=== PATIENT | female | born 1965 | race African-American/Black ===

== ENCOUNTER 2018-11-04 08:33 | Emergency (ER) | payer OTHER ==
--- NOTE | 2018-11-04 09:15 | ER Document Report ---
ED General - General Chief Complaint: Abscess Stated Complaint: ABSCESS Time Seen by Provider: 11/04/18 09:04 Mode of Arrival: Ambulatory Information source: Patient Notes: This is a 53-year-old female with no medical problems, history significant for cigarette smoking (now only 2 cigarettes a day) who presents to the emergency room with a painful lump in the right breast. Patient denies any fever, chills, nausea, vomiting or recent illnesses. Patient denies any night sweats or weight loss. She is not followed by her primary care doctor. She is on no medicines currently. She has no allergies. TRAVEL OUTSIDE OF THE [place] IN LAST 30 DAYS: No - HPI Onset: Last week Onset/Duration: Gradual Quality of pain: Dull Severity: Mild Pain Level: 1 Associated symptoms: denies: Chest pain, Fever, Shortness of breath Exacerbated by: Denies Relieved by: Denies Similar symptoms previously: No Recently seen / treated by doctor: No - Related Data Allergies/Adverse Reactions: No Known Allergies Allergy (Verified 11/04/18 08:36) Past Medical History - General Information source: Patient - Social History Smoking Status: Current Every Day Smoker Cigarette use (# per day): Yes - Few cigarettes a day down from 2 packs a day Chew tobacco use (# tins/day): No Frequency of alcohol use: None Drug Abuse: None Lives with: Spouse/Significant other Family History: Reviewed & Not Pertinent Patient has suicidal ideation: No Patient has homicidal ideation: No - Medical History Medical History: Negative - Past Medical History Cardiac Medical History: Reports: Hx Hypertension Renal/ Medical History: Reports: None GI Medical History: Reports: None Musculoskeletal Medical History: Reports None Surgical Hx: Negative - Immunizations Immunizations up to date: Yes Hx Diphtheria, Pertussis, Tetanus Vaccination: Yes Review of Systems - Review of Systems Constitutional: denies: Chills, Fever EENT: No symptoms reported Cardiovascular: No symptoms reported Respiratory: No symptoms reported Gastrointestinal: No symptoms reported Genitourinary: No symptoms reported Female Genitourinary: No symptoms reported Musculoskeletal: No symptoms reported Skin: See HPI Hematologic/Lymphatic: No symptoms reported Neurological/Psychological: No symptoms reported Physical Exam - Vital signs Vitals: Temp Pulse Resp BP Pulse Ox 98.0 F 85 16 174/88 H 100 11/04/18 08:49 11/04/18 08:49 11/04/18 08:49 11/04/18 08:49 11/04/18 08:49 Notes: Physical exam: GENERAL: Pleasant 53-year-old female, alert and oriented x3, no acute distress. She is hypertensive with a blood pressure of 174/88. Her pulse is 85. O2 sat 100%. Physical exam performed with female nurse present. HEAD: Atraumatic, normocephalic. EYES: Pupils equal round and reactive to light, extraocular movements intact, sclera anicteric, conjunctiva are normal. ENT: TMs normal, nares patent, oropharynx clear without exudates. Moist mucous membranes. NECK: Normal range of motion, supple without obvious mass or JVD. Breast: Right breast: Patient does have palpable mass in the left upper quadrant of the right breast. There is no overlying skin changes, no erythema, no fluctuance. There is no discharge from the nipple. Right axilla: No obvious masses. Left breast: No palpable masses, no skin changes. Left axilla: No masses LUNGS: Scant wheezing bilaterally. HEART: Regular rate and rhythm without murmurs, rubs or gallops. ABDOMEN: Soft, normoactive bowel sounds. No tenderness to palpation. No guarding, no rebound. No masses appreciated. EXTREMITIES: Normal range of motion, no pitting or edema. No clubbing or cyanosis. NEUROLOGICAL: Patient is speaking normally, moving all extremities, no problems with gait . PSYCH: Normal mood, normal affect. SKIN: Warm, Dry, normal turgor, no rashes or lesions noted. Course - Re-evaluation Re-evalutation: 11/04/18 19:59 Note: The patient does not have an abscess. The concern here is that she is got a breast mass which is concerning for breast cancer. Her labs and test x-ray looked good. I did speak to ultrasound and they said they do not do breast ultrasounds (when looking for breast masses and cancer) by policy because those are done as an outpatient patient with a mammogram. Unfortunately does not have insurance. I did speak to Dr. Maravilla who is on-call for oncology and she said that the office does not have any resources for setting up people before the diagnosis of breast cancer is made. She recommended contacting the social services counselor for [facility]. Social work here at [facility] was contacted and they did evaluate the patient. I was informed that there is no resources available until the patient has a diagnosis. Dr. Maravilla had also recommended having the patient follow-up with the [facility] where they could set up the care she needed at a reduced cost and once a diagnosis was confirmed, they could work on getting insurance that would be covered in the oncology office. I had a long discussion with the patient regarding the issues above. I have i nformed her boyfriend who is with her at the bedside. I told them that my concern is that she has breast cancer but there is no definitive answer until the workup above could be completed. They appear to understand my conversation and the boyfriend actually goes to [facility] and said he would go tomorrow to set up an appointment for the patient. I told them to bring a copy of the discharge paperwork to the [facility] to help explain today's clinical encounter and hopefully the plan of getting an outpatient mammogram and ultrasound. - Vital Signs Vital signs: Temp Pulse Resp BP Pulse Ox 98.6 F 82 14 169/86 H 100 11/04/18 14:16 11/04/18 14:16 11/04/18 14:16 11/04/18 14:16 11/04/18 14:16 - Laboratory Result Diagrams: 11/04/18 09:32 11/04/18 09:32 Laboratory results interpreted by me: 11/04/18 11/04/18 09:32 09:32 RDW 14.3 H BUN 22 H Est GFR (Non-Af Amer) 52 L Glucose 119 H - Diagnostic Test Radiology reviewed: Image reviewed, Reports reviewed - X-ray shows no infiltrates Discharge - Discharge Clinical Impression: Breast mass Condition: Stable Disposition: HOME, SELF-CARE Additional Instructions: As we discussed, you do have a right breast mass. This could be cancer (we are just not sure yet because you do need further workup including a mammogram) It is very important that you get an outpatient mammogram with ultrasound. Want you to follow-up with the [facility]: [address] [place] [address], [facility] [phone] When you go to the [facility]: Tell them that you were diagnosed with a breast mass the emergency room and they recommended outpatient mammogram with ultrasound.
[2018-11-04 09:49] LABS: ABSOLUTE EOSINOPHILS # (AUTO) 0.2 10^3/uL (0.0-0.6); ABSOLUTE MONOCYTES (AUTO) 0.4 10^3/uL (0.1-1.4); ABSOLUTE NEUT (AUTO) 2.8 10^3/uL (1.7-8.2); BASOPHILS % (AUTO) 0.5 % (0-2); EOSINOPHILS % (AUTO) 3.4 % (0-6); HEMATOCRIT 40.4 % (36.0-47.0); HEMOGLOBIN 13.8 g/dL (12.0-15.5); LYMPHOCYTES % (AUTO) 37.4 % (13-45); MEAN CORPUSCULAR HEMOGLOBIN 31.3 pg (27.0-33.4); MEAN CORPUSCULAR HGB CONC 34.2 g/dL (32.0-36.0); MEAN CORPUSCULAR VOLUME 92 fl (80-97); PLATELET COUNT 230 10^3/uL (150-450); RED BLOOD COUNT 4.41 10^6/uL (3.72-5.28); RED CELL DISTRIBUTION WIDTH 14.3 % (11.5-14.0); SEGMENTED NEUTROPHILS % (AUTO) 51.7 % (42-78); TOTAL CELLS COUNTED % (AUTO) 100 %; WHITE BLOOD COUNT 5.4 10^3/uL (4.0-10.5)
--- NOTE | 2018-11-04 10:02 | RADIOLOGY REPORT (SQ) ---
EXAM DESCRIPTION: CHEST 2 VIEWS COMPLETED DATE/TIME: 11/04/2018 9:46 am REASON FOR STUDY: Wheezing COMPARISON: None. EXAM PARAMETERS: NUMBER OF VIEWS: two views TECHNIQUE: Digital Frontal and Lateral radiographic views of the chest acquired. RADIATION DOSE: NA LIMITATIONS: none FINDINGS: LUNGS AND PLEURA: No opacities, masses or pneumothorax. No pleural effusion. MEDIASTINUM AND HILAR STRUCTURES: No masses or contour abnormalities. HEART AND VASCULAR STRUCTURES: Heart normal size. No evidence for failure. BONES: No acute findings. HARDWARE: None in the chest. OTHER: No other significant finding. IMPRESSION: 1. NO ACUTE RADIOGRAPHIC FINDING IN THE CHEST. TECHNICAL DOCUMENTATION: JOB ID: [id number] [employer]- All Rights Reserved Reading location - IP/workstation name: [email or web address]
[2018-11-04 10:17] LABS: ALANINE AMINOTRANSFERASE 9 U/L (9-52); ALBUMIN 4.7 g/dL (3.5-5.0); ALKALINE PHOSPHATASE 81 U/L (38-126); ANION GAP 11 (5-19); ASPARTATE AMINO TRANSFERASE 18 U/L (14-36); BILIRUBIN,DIRECT 0.3 mg/dL (0.0-0.4); BILIRUBIN,TOTAL 0.9 mg/dL (0.2-1.3); BLOOD UREA NITROGEN 22 mg/dL (7-20); CALCIUM 9.8 mg/dL (8.4-10.2); CARBON DIOXIDE 29 mmol/L (22-30); CHLORIDE 103 mmol/L (98-107); GLUCOSE 119 mg/dL (75-110); POTASSIUM 3.6 mmol/L (3.6-5.0); TOTAL PROTEIN 7.9 g/dL (6.3-8.2)
[2018-11-04 14:17] VITALS: BP 169/86
== END 2018-11-04 14:17 | disposition home or self-care (01) ==
LOC: ER 08:33
DX: N63.10 Unspecified lump in the right breast, unspecified quadrant (principal); F17.210 Nicotine dependence, cigarettes, uncomplicated; I10 Essential (primary) hypertension
CPT/HCPCS: 36415; 71046; 80053; 85025; 99283

== ENCOUNTER → 2018-12-06 | Outpatient (CLI) | payer OTHER ==
--- NOTE | 2018-12-06 10:24 | RADIOLOGY REPORT (SQ) ---
EXAM DESCRIPTION: CT CHEST WITH COMPLETED DATE/TIME: 12/06/2018 10:07 am REASON FOR STUDY: MALIG NEOPLM OF UPPER-OUTER QUADRANT OF RIGHT FEMALE BREAST C50.411 MALIG NEOPLM OF UPPER-OUTER QUADRANT OF RIGHT FEMALE COMPARISON: None. TECHNIQUE: CT scan of the chest performed using helical scanning technique with dynamic intravenous contrast injection. Images reviewed with lung, soft tissue and bone windows. Reconstructed coronal and sagittal MPR and MIP images reviewed. All images stored on PACS. All CT scanners at this facility use dose modulation, iterative reconstruction, and/or weight based d osing when appropriate to reduce radiation dose to as low as reasonably achievable (ALARA). [facility]: Dose Right [facility]: CareDose [facility]: Dose Right [facility]: Teradose 4D [facility]: [employer] CONTRAST TYPE AND DOSE: 97 mL Isovue 370- low osmolar. RENAL FUNCTION: Creatinine 1.2 RADIATION DOSE: . LIMITATIONS: None. FINDINGS: LUNGS AND PLEURA: No opacities, nodules, masses. No pneumothorax. No effusions. HILAR AND MEDIASTINAL STRUCTURES: No identified masses or abnormal nodes. HEART AND VASCULAR STRUCTURES: No aneurysm or dissection. No central pulmonary emboli. No pericardi al effusion. HARDWARE: None in the chest. UPPER ABDOMEN: No significant findings. Limited exam. THYROID AND OTHER SOFT TISSUES: No masses. No adenopathy. BONES: No significant finding. OTHER: There are 3 separate soft tissue masses in the right breast. These are measured 3.3 cm, 1.8 c m and 1.3 cm. The smallest lesion is in the tail the right breast. IMPRESSION: 1. 3 right breast soft tissue masses as described. 2. No evidence of metastatic disease. TECHNICAL DOCUMENTATION: JOB ID: [id number] Quality ID # [id number]: Final reports with documentation of one or more dose reduction techniques (e.g., Au tomated exposure control, adjustment of the mA and/or kV according to patient size, use of iterative reconstruction technique) 2010 [employer]- All Rights Reserved Reading location - IP/workstation name: [email or web address]
--- NOTE | 2018-12-06 10:26 | RADIOLOGY REPORT (SQ) ---
EXAM DESCRIPTION: CT ABD/PELVIS WITH IV ONLY COMPLETED DATE/TIME: 12/06/2018 10:07 am REASON FOR STUDY: MALIG NEOPLM OF UPPER-OUTER QUADRANT OF RIGHT FEMALE BREAST C50.411 MALIG NEOPLM OF UPPER-OUTER QUADRANT OF RIGHT FEMALE COMPARISON: None. TECHNIQUE: CT scan of the abdomen and pelvis performed using helical scanning technique with dynamic intravenous contrast injection. No oral contrast. Images reviewed with lung, soft tissue, and bone windows. Reconstructed coronal and sagittal MPR images reviewed. Delayed images for evaluation of the urinary system also acquired. All images stored on PACS. All CT scanners at this facility use dose modulation, iterative reconstruction, and/or weight based d osing when appropriate to reduce radiation dose to as low as reasonably achievable (ALARA). [facility]: Dose Right [facility]: CareDose [facility]: Dose Right [facility]: Teradose 4D [facility]: [employer] CONTRAST TYPE AND DOSE: contrast/concentration: Isovue 350.00 mg/ml; Total Contrast Delivered: 97.0 ml; Total Saline Delivered: 72.0 ml RENAL FUNCTION: Creatinine 1.2 RADIATION DOSE: CT Rad equipment meets quality standard of care and radiation dose reduction techniq ues were employed. CTDIvol: 4.8 - 9.6 mGy. DLP: 1191 mGy-cm.. LIMITATIONS: None. FINDINGS: LOWER CHEST: No significant findings. No nodules or infiltrates. LIVER: Normal size. No masses. No dilated ducts. SPLEEN: Normal size. No focal lesions. Accessory splenule is noted in the left upper quadrant. PANCREAS: No masses. No significant calcifications. No adjacent inflammation or peripancreatic fluid collections. Pancreatic duct not dilated. GALLBLADDER: No identified stones by CT criteria. No inflammatory changes to suggest cholecystitis. ADRENAL GLANDS: No significant masses or asymmetry. RIGHT KIDNEY AND URETER: No solid masses. No significant calcifications. No hydronephrosis or hyd roureter. LEFT KIDNEY AND URETER: No solid masses. No significant calcifications. No hydronephrosis or hydr oureter. AORTA AND VESSELS: No aneurysm. No dissection. Renal arteries, SMA, celiac without stenosis. RETROPERITONEUM: No retroperitoneal adenopathy, hemorrhage or masses. BOWEL AND PERITONEAL CAVITY: No masses or inflammatory changes. No free fluid or peritoneal masses. APPENDIX: Normal. PELVIS: No mass. No free fluid. Normal bladder. ABDOMINAL WALL: There is a small umbilical hernia containing omental fat only. BONES: No significant or acute findings. OTHER: No other significant finding. IMPRESSION: No evidence of metastatic disease in the abdomen or pelvis. TECHNICAL DOCUMENTATION: JOB ID: [id number] Quality ID # 436: Final reports with documentation of one or more dose reduction techniques (e.g., Au tomated exposure control, adjustment of the mA and/or kV according to patient size, use of iterative reconstruction technique) 2010 [employer]- All Rights Reserved Reading location - IP/workstation name: [email or web address]
== END ==
LOC: RAD 09:33
PROVIDERS: ATTEND Internal Medicine
DX: C50.411 Malignant neoplasm of upper-outer quadrant of right female breast (principal)
CPT/HCPCS: 71260; 74177; 82565

== ENCOUNTER → 2018-12-09 | Outpatient (CLI) | payer OTHER ==
--- NOTE | 2018-12-09 15:33 | RADIOLOGY REPORT (SQ) ---
EXAM DESCRIPTION: NM WHOLE BODY BONE SCAN COMPLETED DATE/TIME: 12/09/2018 2:18 pm REASON FOR STUDY: BREAST CA C50.411 MALIG NEOPLM OF UPPER-OUTER QUADRANT OF RIGHT FEMALE COMPARISON: No available imaging studies for comparison. RADIONUCLIDE AND DOSE: 21.5 millicuries Tc99m HDP. The route of agent administration: Intravenous. ADDITIONAL DRUGS AND DOSES: None. TECHNIQUE: Routine delayed images at 3 hour post radionuclide injection acquired of the bony skeleto n including anterior and posterior whole-body projections and additional focused images as needed. LIMITATIONS: None. FINDINGS: BONES: Normal visualization without areas of photopenia or increased bony uptake of radiop harmaceutical. KIDNEYS: Symmetric excretion without obstruction. OTHER: No other significant finding. IMPRESSION: NORMAL BONE SCAN. COMMENT: Quality measure 147: No available prior imaging studies for comparison TECHNICAL DOCUMENTATION: JOB ID: [id number] [employer]- All Rights Reserved Reading location - IP/workstation name: [email or web address]
== END ==
LOC: RAD 11:28
PROVIDERS: ATTEND Internal Medicine
DX: C50.411 Malignant neoplasm of upper-outer quadrant of right female breast (principal)
CPT/HCPCS: 78306; A9561

== ENCOUNTER → 2018-12-10 | Outpatient (CLI) | payer OTHER ==
--- NOTE | 2018-12-10 21:27 | XCELERA REPORT ---
[address] [address] Transthoracic Echocardiogram Report Name: KANDICE PATINO Age: 53 yrs Gender: Female : 1965 Patient Status: Outpatient Patient Location: RAD Study Date: 12/10/2018 01:01 PM Height: 62 in Weight: 180 lb BSA: 1.8 m2 Procedure: A two-dimensional transthoracic echocardiogram with color flow Doppler was performed. The study was technically limited with all images being suboptimal in quality. Reason For Study: BREAST CANCER History: BREAST CANCER /Z51.11. Ordering Physician: JERRICA STAPLETON Performed By: Aishwarya Hernandez Interpretation Summary The left ventricle is normal in size. There is normal left ventricular wall thickness. LV EF is 60% to 65% The left ventricular ejection fraction is within normal limits. Doppler measurements suggest impaired left ventricular relaxation, which is associated with grade I/IV or mild diastolic dysfunction The left ventricular wall motion is normal. There is no thrombus. The right ventricle is normal in size and function. The right atrium is normal. The left atrial size is normal. There is no evidence of mitral valve prolapse. There is no vegetation seen on the mitral valve. There is no mitral valve stenosis. There is no mitral regurgitation noted. There is no aortic valvular vegetation. There is no aortic valve stenosis There is no LVOT obstruction. There is a mild to moderate amount of aortic regurgitation There is no tricuspid stenosis. No tricuspid regurgitation. Unable to calculate RVSP due lack of TR jet. There is no pulmonic valvular stenosis. There is a trace amount of pulmonic regurgitation The aortic root is normal size. There is no pericardial effusion. MMode/2D Measurements & Calculations RVDd: 2.7 cm LVIDd: 4.8 cm FS: 35.5 % Ao root diam: 3.0 cm IVSd: 0.79 cm LVIDs: 3.1 cm EDV(Teich): LVPWd: 1.0 cm 108.6 ml Ao root area: ESV(Teich): 38.1 ml6.9 cm2 EF(Teich): 64.9 % EDV(MOD-sp4): SV(MOD-sp4): 85.6 ml 43.8 ml ESV(MOD-sp4): 41.7 ml EF(MOD-sp4): 51.2 % Doppler Measurements & Calculations MV E max noah: MV dec slope: Ao V2 max: AI max noah: 77.0 cm/sec 124.6 cm/sec 527.6 cm/sec MV A max noah: 448.7 cm/sec2 Ao max P.2 mmHgAI max P.7 cm/sec MV dec time: 111.4 mmHg MV E/A: 0.89 0.17 sec AI dec slope: 373.2 cm/sec2 AI P1/2t: 414.1 msec LV V1 max PG: PA V2 max: PI end-d noah: 3.7 mmHg 89.7 cm/sec 104.4 cm/sec LV V1 max: PA max P.2 mmHg 95.8 cm/sec Left Ventricle The left ventricle is normal in size. There is normal left ventricular wall thickness. LV EF is 60% to 65%. The left ventricular ejection fraction is within normal limits. Doppler measurements suggest impaired left ventricular relaxation, which is associated with grade I/IV or mild diastolic dysfunction. The left ventricular wall motion is normal. There is no thrombus. Right Ventricle The right ventricle is normal in size and function. Atria The right atrium is normal. The left atrial size is normal. Mitral Valve There is no evidence of mitral valve prolapse. There is no vegetation seen on the mitral valve. There is no mitral valve stenosis. There is no mitral regurgitation noted. Aortic Valve There is no aortic valvular vegetation. There is no aortic valve stenosis. There is no LVOT obstruction. There is a mild to moderate amount of aortic regurgitation. Tricuspid Valve There is no tricuspid stenosis. No tricuspid regurgitation. Unable to calculate RVSP due lack of TR jet. Pulmonic Valve There is no pulmonic valvular stenosis. There is a trace amount of pulmonic regurgitation. Great Vessels The aortic root is normal size. Effusions There is no pericardial effusion. : JERRICA STAPLETON > Verna Bullock
== END ==
LOC: RAD 12:41
PROVIDERS: ATTEND Internal Medicine
DX: C50.411 Malignant neoplasm of upper-outer quadrant of right female breast (principal); Z79.899 Other long term (current) drug therapy
CPT/HCPCS: 93306

== ENCOUNTER 2018-12-12 05:58 | Day surgery (SDC) | payer OTHER ==
[2018-12-12 06:33] LABS: HEMATOCRIT 40.2 % (36.0-47.0); HEMOGLOBIN 13.8 g/dL (12.0-15.5); MEAN CORPUSCULAR HEMOGLOBIN 31.4 pg (27.0-33.4); MEAN CORPUSCULAR HGB CONC 34.4 g/dL (32.0-36.0); MEAN CORPUSCULAR VOLUME 91 fl (80-97); PLATELET COUNT 269 10^3/uL (150-450); RED CELL DISTRIBUTION WIDTH 13.8 % (11.5-14.0)
[2018-12-12] MEDS ORDERED: CEFAZOLIN 1 GM/D5W RTU 1 GM/50 ML RTUPB IV ONE (07:57)
[2018-12-12] MEDS ORDERED: ACETAMINOPHEN 325 MG TABLET PO PRN (08:08)
[2018-12-12] MEDS ORDERED: LIDOCAINE 0.5% INJ-PF (5 MG/ML) 50 ML SDV ONE (08:26)
[2018-12-12] MEDS ORDERED: BACITRACIN INJ 50,000 UNIT VIAL ONE (08:26)
[2018-12-12] MEDS ORDERED: MIDAZOLAM 2 MG/2 ML INJ ONE ×2 (08:32→09:06)
[2018-12-12] MEDS ORDERED: FENTANYL CITRATE INJ/PF 100 MCG/2 ML AMPUL ONE (08:32)
--- NOTE | 2018-12-12 09:38 | Discharge Summary ---
Discharge Summary (SDC) - Discharge Final Diagnosis: MultiCentric, locally advanced breast carcinoma Date of Surgery: 12/12/18 Discharge Date: 12/12/18 Condition: Good Treatment or Instructions: Patient may use port; follow-up with [facility] in 1-2 weeks. May shower in 72 hours. Patient may take Tylenol Motrin as needed pain Discharge Diet: As Tolerated Discharge Activity: Activity As Tolerated Home Care Assistance: None Needed Report the Following to Your Physician Immediately: Shortness of Breath, Increase in Pain, Fever over 101 Degrees
--- NOTE | 2018-12-12 09:42 | Operative Report ---
Operative Report DATE OF SURGERY: 12/12/18 PREOPERATIVE DIAGNOSIS: Multicentric, locally advanced breast carcinoma POSTOPERATIVE DIAGNOSIS: same OPERATION: 1. Focused ultrasound of the left neck. 2. Ultrasound directed insertion of single-lumen port catheter into the left subclavian position. 3. Interpretation of intraoperative fluoroscopy SURGEON: TRU RABAGO ANESTHESIA: Moderate Sedation TISSUE REMOVED OR ALTERED: none COMPLICATIONS: none ESTIMATED BLOOD LOSS: scant INTRAOPERATIVE FINDINGS: see below PROCEDURE: The patient was taken from the ambulatory area to the main cardiac catheterization lab where she was placed supine position, arms tucked, left neck and chest wall prepped and draped in sterile fashion. Surgical plan surgical timeout were conducted. The left neck was anesthetized with 1% plain lidocaine. Using Seldinger technique, with ultrasound as a real guide, a micro needle and wire were threaded into the left internal jugular vein without difficulty. A suitable site for placement of port pocket shows in the left subclavian position. Skin was anesthetized with 1% plain lidocaine. A 3 cm incision was made in the subclavian region, and a subcutaneous pocket developed large enough to accommodate a single port was developed. The catheter was then trimmed to the appropriate length, tunneled between the 2 incisions, attached to the port with the plastic ring retaining ring. The port was tucked into the subclavian pocket. The micro wire was then switched over to a conventional 0.030 inch guidewire using the micro-introducer sheath. We then threaded the 9 [place]z dilator and sheath over the wire under fluoroscopic guidance real-time. The dilator and wire were removed, catheter fragment threaded into the strip away sheath strip away sheath removed, and the catheter left in position. Fluoroscopically the tip of the catheter was in the SVC- right atrial junction. There is no evidence of ectopy. There is no kinking of the catheter at the neck. Completion images were obtained for the record. Heparinized saline was aspirated through the Weinberg needle through the port without difficulty and the line flushed with a dilute heparinized saline solution. Hemostasis was excellent. Both neck and chest wall wounds closed with interrupted 3-0 Vicryl suture, benzoin, and Steri- Strips. Patient tolerated procedure well. Discharge instructions provided to nursing staff.
[2018-12-12 11:47] VITALS: BP 149/90
--- NOTE | 2018-12-12 12:56 | RADIOLOGY REPORT (SQ) ---
EXAM DESCRIPTION: PORTACATH INSERTION COMPLETED DATE/TIME: 12/12/2018 9:40 am REASON FOR STUDY: RT BREAST CA C50.411 MALIG NEOPLM OF UPPER-OUTER QUADRANT OF RIGHT FEMALE COMPARISON: CT chest 12/06/2018 FLUOROSCOPY TIME: Less than 5 seconds 1 digital radiographic image saved to PACS. TECHNIQUE: Intra-operative images acquired during surgical procedure to evaluate progress. NUMBER OF IMAGES: 1 digital radiographic image LIMITATIONS: None. FINDINGS: Intra procedural imaging and fluoro during placement of a left-sided permanent central shaye e. Please see the operative report IMPRESSION: IMAGE(S) OBTAINED DURING PROCEDURE. COMMENT: Quality ID [id number]: Final reports for procedures using fluoroscopy that document radiation exp osure indices, or exposure time and number of fluorographic images (if radiation exposure indices are not available) Please consult full operative report of the attending physician for description of the procedure. TECHNICAL DOCUMENTATION: JOB ID: [id number] [employer]- All Rights Reserved FLUORO TIME: Less than 5 seconds 1 digital radiographic image saved to PACS. Reading location - IP/workstation name: [email or web address]
== END 2018-12-12 10:30 | disposition home or self-care (01) ==
LOC: CCL 05:58
PROVIDERS: ATTEND Surgery
DX: C50.411 Malignant neoplasm of upper-outer quadrant of right female breast (principal); J45.909 Unspecified asthma, uncomplicated; F17.210 Nicotine dependence, cigarettes, uncomplicated; Z72.89 Other problems related to lifestyle; Z01.818 Encounter for other preprocedural examination
CPT/HCPCS: 36415; 85027; 36561; 76937; 77001; C1752; C1788; J2250; J3490 ×2; J0690; J3010; J1644

== ENCOUNTER 2018-12-17 09:02 | Outpatient (CLI) | payer MEDICAID, OTHER ==
[~2018-12-17 09:02] MED LIST: CYCLOPHOSPHAMIDE IV PRN; DEXAMETHASONE SOD PHOSPHATE 10 MG in NORMAL SALINE 50 ML IV PRN; DISPOSABLE IV PRN; DOXORUBICIN HCL IV PRN; FOSAPREPITANT DIMEGLUMINE 150 MG in NORMAL SALINE 150 ML IV PRN; NORMAL SALINE 500 ML IV PRN; NORMAL SALINE IV PRN; PALONOSETRON 0.25 MG/5 ML SDV IV PRN
[2018-12-17 09:59] VITALS: BP 171/86
== END 2018-12-17 13:55 | disposition home or self-care (01) ==
LOC: II 09:02 → 5TH 09:53 → II 13:55
PROVIDERS: ATTEND Internal Medicine
PROC: 3E04305 Introduction of Other Antineoplastic into Central Vein, Percutaneous Approach (ICD-10-PCS; principal; 2018-12-17)
PROC: 3E0433Z Introduction of Anti-inflammatory into Central Vein, Percutaneous Approach (ICD-10-PCS; 2018-12-17)
PROC: 3E043GC Introduction of Other Therapeutic Substance into Central Vein, Percutaneous Approach (ICD-10-PCS; 2018-12-17)
DX: Z51.11 Encounter for antineoplastic chemotherapy (principal); C50.411 Malignant neoplasm of upper-outer quadrant of right female breast
CPT/HCPCS: 96409; 96413; 96367; 96374; 96375; 96360; J9070; J9000; J7040; J3490; J1100; J1453; J2469; 96417

== ENCOUNTER → 2018-12-18 | Outpatient (CLI) | payer OTHER ==
[~2018-12-18] MED LIST changes: -CYCLOPHOSPHAMIDE IV PRN; -DEXAMETHASONE SOD PHOSPHATE 10 MG in NORMAL SALINE 50 ML IV PRN; -DISPOSABLE IV PRN; -DOXORUBICIN HCL IV PRN; -FOSAPREPITANT DIMEGLUMINE 150 MG in NORMAL SALINE 150 ML IV PRN; -NORMAL SALINE 500 ML IV PRN; -NORMAL SALINE IV PRN; -PALONOSETRON 0.25 MG/5 ML SDV IV PRN; +PEGFILGRASTIM INJ 6 MG/0.6 ML DISP.SYRIN SUBCUT PRN
[2018-12-18 13:32] VITALS: BP 150/88
== END ==
LOC: II 13:14
PROVIDERS: ATTEND Internal Medicine
PROC: 3E013GC Introduction of Other Therapeutic Substance into Subcutaneous Tissue, Percutaneous Approach (ICD-10-PCS; principal; 2018-12-18)
DX: Z76.89 Persons encountering health services in other specified circumstances (principal); C50.411 Malignant neoplasm of upper-outer quadrant of right female breast; D70.2 Other drug-induced agranulocytosis
CPT/HCPCS: 96372; J2505

== ENCOUNTER 2018-12-31 08:52 | Outpatient (CLI) | payer MEDICAID ==
[~2018-12-31 08:52] MED LIST changes: +CYCLOPHOSPHAMIDE IV PRN; +DEXAMETHASONE 10 MG in NS 50 ML IV PRN; +DISPOSABLE IV PRN; +DOXORUBICIN HCL IV PRN; +FOSAPREPITANT 150 MG in NS 150 ML IV PRN; +NORMAL SALINE 500 ML @ KVO IV PRN; +NORMAL SALINE IV PRN; +PALONOSETRON 0.25 MG/5 ML VIAL IV PRN; -PEGFILGRASTIM INJ 6 MG/0.6 ML DISP.SYRIN SUBCUT PRN
[2018-12-31 10:01] VITALS: BP 154/86
== END 2018-12-31 12:50 | disposition home or self-care (01) ==
LOC: II 08:52 → 5TH 08:55 → II 12:50
PROVIDERS: ATTEND Internal Medicine
PROC: 3E04305 Introduction of Other Antineoplastic into Central Vein, Percutaneous Approach (ICD-10-PCS; principal; 2018-12-31)
PROC: 3E0433Z Introduction of Anti-inflammatory into Central Vein, Percutaneous Approach (ICD-10-PCS; 2018-12-31)
PROC: 3E043GC Introduction of Other Therapeutic Substance into Central Vein, Percutaneous Approach (ICD-10-PCS; 2018-12-31)
DX: Z51.11 Encounter for antineoplastic chemotherapy (principal); C50.411 Malignant neoplasm of upper-outer quadrant of right female breast
CPT/HCPCS: 96409; 96413; 96367; 96374; 96360; J9070; J9000; J7040; J3490; J1100; J1453; J2469; 96366; 96375; 96411

== ENCOUNTER 2019-01-01 12:41 | Outpatient (CLI) | payer MEDICAID, OTHER ==
[~2019-01-01 12:41] MED LIST changes: -CYCLOPHOSPHAMIDE IV PRN; -DEXAMETHASONE 10 MG in NS 50 ML IV PRN; -DISPOSABLE IV PRN; -DOXORUBICIN HCL IV PRN; -FOSAPREPITANT 150 MG in NS 150 ML IV PRN; -NORMAL SALINE 500 ML @ KVO IV PRN; -NORMAL SALINE IV PRN; -PALONOSETRON 0.25 MG/5 ML VIAL IV PRN; +PEGFILGRASTIM INJ 6 MG/0.6 ML DISP.SYRIN SUBCUT PRN
[2019-01-01 12:57] VITALS: BP 133/75
== END 2019-01-01 13:04 | disposition home or self-care (01) ==
LOC: II 12:41 → 5TH 12:41 → II 13:04
PROVIDERS: ATTEND Internal Medicine
PROC: 3E013GC Introduction of Other Therapeutic Substance into Subcutaneous Tissue, Percutaneous Approach (ICD-10-PCS; principal; 2019-01-01)
DX: Z76.89 Persons encountering health services in other specified circumstances (principal); C50.411 Malignant neoplasm of upper-outer quadrant of right female breast; D70.2 Other drug-induced agranulocytosis
CPT/HCPCS: 96372; J2505

== ENCOUNTER 2019-01-15 12:38 | Outpatient (CLI) | payer MEDICAID, OTHER ==
[2019-01-15 12:49] VITALS: BP 125/69
== END 2019-01-15 13:08 | disposition home or self-care (01) ==
LOC: II 12:38 → 5TH 12:56 → II 13:08
PROVIDERS: ATTEND Internal Medicine
PROC: 3E013GC Introduction of Other Therapeutic Substance into Subcutaneous Tissue, Percutaneous Approach (ICD-10-PCS; principal; 2019-01-15)
DX: Z76.89 Persons encountering health services in other specified circumstances (principal); C50.411 Malignant neoplasm of upper-outer quadrant of right female breast; D70.2 Other drug-induced agranulocytosis
CPT/HCPCS: 96372; J2505

== ENCOUNTER 2019-01-28 08:44 | Outpatient (CLI) | payer MEDICAID ==
[~2019-01-28 08:44] MED LIST changes: +CYCLOPHOSPHAMIDE IV PRN; +DEXAMETHASONE 10 MG in NS 50 ML IV PRN; +DOXORUBICIN HCL 110 MG in SYRINGE, DISPOSABLE, 1 EACH IV PRN; +FOSAPREPITANT 150 MG in NS 150 ML IV PRN; +NORMAL SALINE 500 ML @ KVO IV PRN; +NORMAL SALINE IV PRN; +PALONOSETRON 0.25 MG/5 ML VIAL IV PRN; -PEGFILGRASTIM INJ 6 MG/0.6 ML DISP.SYRIN SUBCUT PRN
[2019-01-28 09:45] VITALS: BP 146/72
== END 2019-01-28 13:19 | disposition hospice, home (50) ==
LOC: II 08:44 → 5TH 08:46 → II 13:19
PROVIDERS: ATTEND Internal Medicine
PROC: 3E04305 Introduction of Other Antineoplastic into Central Vein, Percutaneous Approach (ICD-10-PCS; principal; 2019-01-28)
PROC: 3E0433Z Introduction of Anti-inflammatory into Central Vein, Percutaneous Approach (ICD-10-PCS; 2019-01-28)
PROC: 3E043GC Introduction of Other Therapeutic Substance into Central Vein, Percutaneous Approach (ICD-10-PCS; 2019-01-28)
DX: Z51.11 Encounter for antineoplastic chemotherapy (principal); C50.411 Malignant neoplasm of upper-outer quadrant of right female breast
CPT/HCPCS: 96409; 96413; 96367; 96374; 96375; 96360; J9070; J9000; J7050; J7040; J3490; J1100; J1642; J1453; J2469; 96415; 96417

== ENCOUNTER 2019-02-11 09:14 | Outpatient (CLI) | payer MEDICAID ==
[~2019-02-11 09:14] MED LIST changes: -CYCLOPHOSPHAMIDE IV PRN; +DIPHENHYDRAMINE 50 MG in NS 50 ML IV PRN; -DOXORUBICIN HCL 110 MG in SYRINGE, DISPOSABLE, 1 EACH IV PRN; +FAMOTIDINE 20 MG in NS 50 ML IV PRN; -FOSAPREPITANT 150 MG in NS 150 ML IV PRN; +NORMAL SALINE 250 ML @ KVO IV PRN; -NORMAL SALINE 500 ML @ KVO IV PRN; +PACLITAXEL SEMI SYNTHETIC IV PRN; -PALONOSETRON 0.25 MG/5 ML VIAL IV PRN
[2019-02-11 10:43] VITALS: BP 129/68
== END 2019-02-11 15:19 | disposition home or self-care (01) ==
LOC: II 09:14 → 5TH 09:57 → II 15:19
PROVIDERS: ATTEND Internal Medicine
PROC: 3E04305 Introduction of Other Antineoplastic into Central Vein, Percutaneous Approach (ICD-10-PCS; principal; 2019-02-11)
PROC: 3E043GC Introduction of Other Therapeutic Substance into Central Vein, Percutaneous Approach (ICD-10-PCS; 2019-02-11)
PROC: 3E0433Z Introduction of Anti-inflammatory into Central Vein, Percutaneous Approach (ICD-10-PCS; 2019-02-11)
DX: Z51.11 Encounter for antineoplastic chemotherapy (principal); C50.411 Malignant neoplasm of upper-outer quadrant of right female breast
CPT/HCPCS: 96413; 96415; 96367; 96374; 96360; 96417; J1200; J7040; J9267; S0028; J1100; J1642

== ENCOUNTER 2019-02-12 14:43 | Outpatient (CLI) | payer MEDICAID ==
[~2019-02-12 14:43] MED LIST changes: -DEXAMETHASONE 10 MG in NS 50 ML IV PRN; -DIPHENHYDRAMINE 50 MG in NS 50 ML IV PRN; -FAMOTIDINE 20 MG in NS 50 ML IV PRN; -NORMAL SALINE 250 ML @ KVO IV PRN; -NORMAL SALINE IV PRN; -PACLITAXEL SEMI SYNTHETIC IV PRN; +PEGFILGRASTIM INJ 6 MG/0.6 ML DISP.SYRIN SUBCUT PRN
[2019-02-12 15:03] VITALS: BP 125/76
== END 2019-02-12 15:18 | disposition home or self-care (01) ==
LOC: II 14:43 → 5TH 15:12 → II 15:18
PROVIDERS: ATTEND Internal Medicine
PROC: 3E013GC Introduction of Other Therapeutic Substance into Subcutaneous Tissue, Percutaneous Approach (ICD-10-PCS; principal; 2019-02-12)
DX: Z76.89 Persons encountering health services in other specified circumstances (principal); C50.411 Malignant neoplasm of upper-outer quadrant of right female breast; D70.2 Other drug-induced agranulocytosis
CPT/HCPCS: 96372 ×2; J2505

== ENCOUNTER 2019-03-05 14:30 | Outpatient (CLI) | payer MEDICAID ==
[2019-03-05 14:50] VITALS: BP 120/72
== END 2019-03-05 15:03 | disposition home or self-care (01) ==
LOC: II 14:30 → 5TH 14:34 → II 15:03
PROVIDERS: ATTEND Internal Medicine
PROC: 3E013GC Introduction of Other Therapeutic Substance into Subcutaneous Tissue, Percutaneous Approach (ICD-10-PCS; principal; 2019-03-05)
DX: Z76.89 Persons encountering health services in other specified circumstances (principal); C50.411 Malignant neoplasm of upper-outer quadrant of right female breast; D70.2 Other drug-induced agranulocytosis
CPT/HCPCS: 96372; J2505

== ENCOUNTER → 2019-03-07 | Outpatient (CLI) | payer MEDICAID, OTHER ==
--- NOTE | 2019-03-08 14:10 | XCELERA REPORT ---
[address] [address] Upper Extremity Venous Evaluation Name: KANDICE PATINO Age: 53 yrs Gender: Female : 1965 Patient Status: Outpatient Patient Location: Study Date: 03/07/2019 03:18 PM Procedure: Unilateral duplex scan of the left upper extremity veins was performed, including responses to compression and other maneuvers. Reason For Study: LUE PAIN/SWELLING Ordering Physician: JOSUÉ LEE Performed By: Jj Long Left Sided Venous Evaluation Normal vessel filling wall to wall, compression and augmentation as well as Colour flow down to the forearm veins. Interpretation Summary Normal compression, patency, spontaneous and phasic flow of the left upper extremity veins. : JOSUÉ LEE Lennox
== END ==
LOC: SP 14:49
PROVIDERS: ATTEND Physician Assistant Medical
DX: M79.602 Pain in left arm (principal); R22.32 Localized swelling, mass and lump, left upper limb
CPT/HCPCS: 93971

== ENCOUNTER 2019-03-18 08:24 | Outpatient (CLI) | payer MEDICAID ==
[~2019-03-18 08:24] MED LIST changes: +DEXAMETHASONE 10 MG in NS 50 ML IV PRN; +DIPHENHYDRAMINE 50 MG in NS 50 ML IV PRN; +FAMOTIDINE 20 MG in NS 50 ML IV PRN; +NORMAL SALINE 250 ML @ KVO IV PRN; +NORMAL SALINE IV PRN; +PACLITAXEL SEMI SYNTHETIC IV PRN; -PEGFILGRASTIM INJ 6 MG/0.6 ML DISP.SYRIN SUBCUT PRN
[2019-03-18 08:44] VITALS: BP 125/78
== END 2019-03-18 14:02 | disposition home or self-care (01) ==
LOC: II 08:24 → 5TH 08:27 → II 14:02
PROVIDERS: ATTEND Internal Medicine
PROC: 3E04305 Introduction of Other Antineoplastic into Central Vein, Percutaneous Approach (ICD-10-PCS; principal; 2019-03-18)
PROC: 3E0433Z Introduction of Anti-inflammatory into Central Vein, Percutaneous Approach (ICD-10-PCS; 2019-03-18)
PROC: 3E043GC Introduction of Other Therapeutic Substance into Central Vein, Percutaneous Approach (ICD-10-PCS; 2019-03-18)
DX: Z51.11 Encounter for antineoplastic chemotherapy (principal); C50.411 Malignant neoplasm of upper-outer quadrant of right female breast
CPT/HCPCS: 96413; 96415; 96367; J1200; J7040; J9267; S0028; J1100; J1642; 96365; 96366

== ENCOUNTER 2019-03-19 13:49 | Outpatient (CLI) | payer MEDICAID ==
[~2019-03-19 13:49] MED LIST changes: -DEXAMETHASONE 10 MG in NS 50 ML IV PRN; -DIPHENHYDRAMINE 50 MG in NS 50 ML IV PRN; -FAMOTIDINE 20 MG in NS 50 ML IV PRN; -NORMAL SALINE 250 ML @ KVO IV PRN; -NORMAL SALINE IV PRN; -PACLITAXEL SEMI SYNTHETIC IV PRN; +PEGFILGRASTIM-CBQV 6 MG/0.6 ML SYRINGE SUBCUT PRN
[2019-03-19 14:08] VITALS: BP 124/79
== END 2019-03-19 14:14 | disposition home or self-care (01) ==
LOC: II 13:49 → 5TH 13:52 → II 14:14
PROVIDERS: ATTEND Internal Medicine
PROC: 3E013GC Introduction of Other Therapeutic Substance into Subcutaneous Tissue, Percutaneous Approach (ICD-10-PCS; principal; 2019-03-19)
DX: Z76.89 Persons encountering health services in other specified circumstances (principal); C50.411 Malignant neoplasm of upper-outer quadrant of right female breast; D70.2 Other drug-induced agranulocytosis
CPT/HCPCS: 96372; Q5111

== ENCOUNTER 2019-04-01 08:21 | Outpatient (CLI) | payer MEDICAID ==
[~2019-04-01 08:21] MED LIST changes: +DEXAMETHASONE SOD PHOSPHATE 10 MG in NORMAL SALINE 50 ML IV PRN; +DIPHENHYDRAMINE HCL 50 MG in NORMAL SALINE 50 ML IV PRN; +FAMOTIDINE/PF 20 MG in NORMAL SALINE 50 ML IV PRN; +NORMAL SALINE 250 ML IV PRN; +NORMAL SALINE IV PRN; +PACLITAXEL SEMI SYNTHETIC IV PRN; -PEGFILGRASTIM-CBQV 6 MG/0.6 ML SYRINGE SUBCUT PRN
[2019-04-01 08:52] VITALS: BP 125/93
[2019-04-01] MEDS ORDERED: POTASSIUM CHLORIDE 20 MEQ/50 ML RTU IV PRN (10:30)
[2019-04-01] MEDS ORDERED: NORMAL SALINE 250 ML IV PRN (10:31)
== END 2019-04-01 15:10 | disposition home or self-care (01) ==
LOC: II 08:21 → 5TH 08:22 → II 15:10
PROVIDERS: ATTEND Internal Medicine
PROC: 3E04305 Introduction of Other Antineoplastic into Central Vein, Percutaneous Approach (ICD-10-PCS; principal; 2019-04-01)
PROC: 3E0433Z Introduction of Anti-inflammatory into Central Vein, Percutaneous Approach (ICD-10-PCS; 2019-04-01)
PROC: 3E043GC Introduction of Other Therapeutic Substance into Central Vein, Percutaneous Approach (ICD-10-PCS; 2019-04-01)
DX: Z51.11 Encounter for antineoplastic chemotherapy (principal); C50.411 Malignant neoplasm of upper-outer quadrant of right female breast; E87.6 Hypokalemia
CPT/HCPCS: 96413; 96415; 96366; 96367; J1200; J3480; J7040; J9267; S0028; J1100; J1642; 96360; 96365; 96374; 96417

== ENCOUNTER 2019-05-14 09:38 | Day surgery (SDC) | payer MEDICAID, OTHER ==
[2019-05-07 10:03] LABS: HEMATOCRIT 35.9 % (36.0-47.0); HEMOGLOBIN 12.1 g/dL (12.0-15.5); MEAN CORPUSCULAR HEMOGLOBIN 31.9 pg (27.0-33.4); MEAN CORPUSCULAR HGB CONC 33.7 g/dL (32.0-36.0); MEAN CORPUSCULAR VOLUME 95 fl (80-97); PLATELET COUNT 290 10^3/uL (150-450); RED CELL DISTRIBUTION WIDTH 15.2 % (11.5-14.0); WHITE BLOOD COUNT 4.7 10^3/uL (4.0-10.5)
[2019-05-07 10:25] LABS: ANION GAP 10 (5-19); BLOOD UREA NITROGEN 16 mg/dL (7-20); CALCIUM 10.2 mg/dL (8.4-10.2); CARBON DIOXIDE 29 mmol/L (22-30); CHLORIDE 100 mmol/L (98-107); GLUCOSE 110 mg/dL (75-110); POTASSIUM 4.3 mmol/L (3.6-5.0)
--- NOTE | 2019-05-07 17:31 | EKG REPORT ---
SEVERITY:- BORDERLINE ECG - SINUS RHYTHM BORDERLINE PROLONGED QT INTERVAL : Confirmed by: Verna Bullock MD 07-May-2019 17:30:56
[~2019-05-14 09:38] MED LIST changes: +CEFAZOLIN 1 GM/D5W RTU 1 GM/50 ML RTUPB IV PRN; -DEXAMETHASONE SOD PHOSPHATE 10 MG in NORMAL SALINE 50 ML IV PRN; +DEXAMETHASONE SOD PHOSPHATE INJ 4 MG/1 ML VIAL ONE; +DEXTROSE 5%-LACTATED RINGERS 1,000 ML IV PRN; -DIPHENHYDRAMINE HCL 50 MG in NORMAL SALINE 50 ML IV PRN; -FAMOTIDINE/PF 20 MG in NORMAL SALINE 50 ML IV PRN; +GLYCOPYRROLATE 1 MG/5 ML VIAL ONE; +LACTATED RINGERS 1000 ML IV PRN; +LIDOCAINE 0.5% INJ-PF (5 MG/ML) 50 ML SDV SUBCUT PRN; +LIDOCAINE 2% INJ-PF (20 MG/ML) 2 ML AMPUL ONE; +NEOSTIGMINE METHYLSULFATE 10 MG/10 ML VIAL ONE; -NORMAL SALINE 250 ML IV PRN; -NORMAL SALINE IV PRN; +ONDANSETRON HCL INJ/PF 4 MG/2 ML SDV ONE; -PACLITAXEL SEMI SYNTHETIC IV PRN; +ROCURONIUM BROMIDE INJ 50 MG/5 ML VIAL IV ONE
[2019-05-14] MEDS ORDERED: CEFAZOLIN 1 GM/D5W RTU 1 GM/50 ML RTUPB IV ONE (10:15)
[2019-05-14] MEDS ORDERED: PROPOFOL INJ 200 MG/20 ML VIAL IV ONE (10:49)
[2019-05-14] MEDS ORDERED: FENTANYL CITRATE INJ/PF 250 MCG/5 ML AMPULE ONE (10:49)
[2019-05-14] MEDS ORDERED: MIDAZOLAM 2 MG/2 ML INJ ONE (10:49)
[2019-05-14] MEDS ORDERED: LIDOCAINE 1%/EPINEPHRINE INJ 20 ML VIAL INJ ONE (11:25)
[2019-05-14] MEDS ORDERED: PROMETHAZINE HCL INJ 25 MG/1 ML VIAL IV PRN ×2 (11:41)
[2019-05-14] MEDS ORDERED: DIPHENHYDRAMINE HCL 50 MG/ML VIAL IV PRN (11:41)
[2019-05-14] MEDS ORDERED: FENTANYL CITRATE INJ/PF 100 MCG/2 ML AMPUL IV PRN ×3 (11:41)
[2019-05-14] MEDS ORDERED: OXYCODONE-ACETAMINOPHEN 5-325 MG TABLET PO PRN ×2 (11:41)
[2019-05-14] MEDS ORDERED: MEPERIDINE HCL/PF INJ 25 MG/1 ML DISP.SYRIN IV PRN (11:41)
--- NOTE | 2019-05-14 13:34 | Operative Report ---
Operative Report DATE OF SURGERY: 05/14/19 PREOPERATIVE DIAGNOSIS: Multifocal right breast carcinoma with metastases sta tus post neoadjuvant chemotherapy POSTOPERATIVE DIAGNOSIS: Same OPERATION: Right modified radical mastectomy with drain placement x2 SURGEON: TRU BEARD 1ST METAL MODEL BUILDER: LIDIA HENRY ANESTHESIA: GA TISSUE REMOVED OR ALTERED: Right breast and axillary contents COMPLICATIONS: None ESTIMATED BLOOD LOSS: 75 cc INTRAOPERATIVE FINDINGS: See below PROCEDURE: Patient was seen in the preop holding area with the right breast was marked. She was then taken to the main operating room, general anesthesia inducted, the right arm abducted, the right chest wall breast and axilla prepped and draped in sterile fashion. Surgical plan surgical timeout were conducted. The patient had known right breast invasive carcinoma, multifocal in the 12 and 130 positions. She also had known metastases in the right axilla. Markings were made on the skin for planned right mastectomy with a short superior skin flap. The superior side of the mastectomy incision was then made with a #10 blade. The superior skin flap was mobilized, taken to the level of dissection all the way to infraclavicular area. Inferiorly the lower skin flap was raised down to the serratus anterior-chest wall musculature. The right breast was then taken off of the chest wall from the parasternal tissue all the way to the lateral border of the talus major muscle. The Bookwalter retractor system was established. The tail of Cali was taken down with electrocautery to the level of the borders of the axilla including the medial chest wall, lateral edge of the latissimus dorsi muscle, and the axillary sheath. Excellent exposure was achieved. The amount of fibrotic tissue was minimal. We proceeded in a methodical fashion taken the axillary contents off of the undersurface of the pectoralis major muscle, the undersurface of the pectoralis minor muscle and then the wall proper. Laterally and superiorly the tissue was taken off of the upper portion of the latissimus dorsi muscle, and the axillary sheath. The dissection the index nerves including the dorsal nerve, long thoracic nerve, and the intercostal brachial nerve all preserved; adenopathy was minimal. Dissection proceeded topically. All axillary fat was mobilized with the tail of Cali. Some loose fragments were sent to the specimen container. The specimen was free from the patient, and brought directly to pathology by Dr. Beard. Dr. Arcot the pathologist, into the specimen and sliced it vertically. The 2 known upper breast tumors were identified. Regions were felt grossly to be negative. We returned to the patient, placed 2 large Steven drains in the urine flap, secured them to the skin with 0 silk and turned into the appropriate length. The mastectomy incision was now closed with 2-0 Vicryl and Dermabond glue. Patient tolerated procedure well, extubated and then taken to the recovery room in stable condition.
[2019-05-14] MEDS ORDERED: KETOROLAC TROMETHAMINE 10 MG TABLET PO PRN (13:36)
[2019-05-14] MEDS ORDERED: KETOROLAC TROMETHAMINE INJ/PF 30 MG/1 ML SDV IV PRN (13:36)
[2019-05-14] MEDS ORDERED: ONDANSETRON HCL INJ/PF 4 MG/2 ML SDV IV PRN (13:36)
[2019-05-14] MEDS: FENTANYL CITRATE INJ/PF 100 MCG/2 ML AMPUL ONE ×2 (14:15→14:25)
[2019-05-14] MEDS: ACETAMINOPHEN INJ/PF 1000 MG/100 ML SDV IV SCH (17:38)
[2019-05-15] MEDS: ACETAMINOPHEN INJ/PF 1000 MG/100 ML SDV IV SCH ×2 (00:58→06:14)
--- NOTE | 2019-05-15 08:51 | PDOC DISCHARGE SUMMARY ---
General - Admit/Disc Date/PCP Admission Date/Primary Care Provider: Admission date May 06, 2019 Discharge date May 15, 2019 Discharge Date: 05/15/19 - Discharge Diagnosis (1) Breast cancer Is this a current diagnosis for this admission?: Yes (2) Hypertension Is this a current diagnosis for this admission?: Yes - Additional Information Resuscitation Status: Full Code Discharge Diet: As Tolerated Discharge Activity: Activity As Tolerated Home Medications: Amlodipine Besylate [Norvasc 2.5 mg Tablet] 2.5 mg PO DAILY 05/14/19 Ondansetron [Ondansetron Odt] 8 mg PO Q8 PRN 05/14/19 Potassium Chloride 20 meq PO DAILY 05/14/19 Promethazine HCl [Phenergan 25 mg Tablet] 25 mg PO Q6 PRN 05/14/19 History of Present Illness History of Present Illness: KANDICE PATINO is a 53 year old female Hospital Course Hospital Course: The patient is a 52-year-old Afro-Iraqi female with multi-focal invasive ductal carcinoma of the right breast with metastases of the right axilla, status post neoadjuvant chemotherapy, who is now brought to the operating room through ambulatory surgery for right modified radical mastectomy. Procedures performed by Dr. Beard on 05/14/2019. She tolerated the operation well with no postoperative complications. Her drains in satisfactorily. By the first postoperative day she was felt to receive maximum benefit from hospitalization was discharged home. Physical Exam Vital Signs: Temp Pulse Resp BP Pulse Ox 98.3 F 80 14 142/80 H 97 05/15/19 07:39 05/15/19 07:39 05/15/19 07:39 05/15/19 07:39 05/15/19 07:39 Intake & Output 05/14/19 05/15/19 05/16/19 06:59 06:59 06:59 Intake Total 3025 Output Total 537 Balance 2488 Weight 72.9 kg General appearance: PRESENT: no acute distress, other - Awake alert and oriented x4. Cardiovascular exam: PRESENT: other - Chest wall mastectomy site looks excellent, glue in place, no hematoma; drains functioning Extremities exam: PRESENT: other - Excellent range of motion of the right upper extremity Results Laboratory Results: 05/07/19 09:14 05/14/19 10:18 05/14/19 10:18 Potassium 4.2 Qualifiers - * PATIENT BEING DISCHARGED WITH ANY OF THE FOLLOWING DIAGNOSIS: No Acute Heart Failure - Is this a Heart Failure Patient?: No Plan Discharge Plan: Patient be discharged home to care of family follow-up Dr. Beard and also surgical in 1 week, take Toradol as needed pain and resume her preoperative medications diet and activity. She is been instructed on drain care and recording output. Time Spent: Less than 30 Minutes
[2019-05-15 09:11] VITALS: BP 120/74
== END 2019-05-15 09:45 | disposition home or self-care (01) ==
LOC: OROUT 09:38 → 4N 15:54 → OROUT 05-15 09:45
PROVIDERS: ATTEND Surgery
DX: C50.811 Malignant neoplasm of overlapping sites of right female breast (principal); Z17.0 Estrogen receptor positive status [ER+]; I10 Essential (primary) hypertension; J45.909 Unspecified asthma, uncomplicated; F17.200 Nicotine dependence, unspecified, uncomplicated; Z78.9 Other specified health status; Z79.899 Other long term (current) drug therapy
CPT/HCPCS: 93005; 36415 ×2; 84132; 85027; 81025; 80048; 88309 ×2; 93010; 00404; 19307; J2250; J0690; J3490 ×4; J1100; J3010 ×2; J1885; J2710; J2405; J7120; J2704; J0131 ×2; 404; 82565

== ENCOUNTER → 2019-10-20 | Outpatient (CLI) | payer MEDICAID, OTHER ==
--- NOTE | 2019-10-20 10:32 | WOMENS IMAGING REPORT ---
EXAM DESCRIPTION: BONE DENSITY HIP/SPINE COMPLETED DATE/TIME: 10/20/2019 9:26 am REASON FOR STUDY: M81.0 BONE DENSITY M81.0 AGE-RELATED OSTEOPOROSIS W/O CURRENT PATHOLOGICAL FRAC COMPARISON: None. TECHNIQUE: Dual-Energy X-ray Absorptiometry (DEXA) of the AP Spine and Hip. LIMITATIONS: None. FINDINGS: LUMBAR SPINE: The bone mineral density (BMD) measured from L1-L4 in the AP projection correlates with a T-score of 0.4, which is normal as defined by the World Health Organization. BMD Change vs Baseline: N/A HIP: The bone mineral density (BMD) measured in the left hip correlates with a T-score of 0.4, which is no rmal as defined by the World Health Organization. BMD Change vs Baseline: N/A 10 year Fracture Risk Assessment: Major Osteoporotic Fracture: Not available. Hip Fracture: Not available. IMPRESSION: 1. LUMBAR SPINE WHO CLASSIFICATION: NORMAL. 2. HIP WHO CLASSIFICATION: NORMAL. OVERALL ASSESSMENT: WHO CLASSIFICATION: NORMAL. COMMENT: The World Health Organization defines low BMD as follows: T-score: Normal: Greater than -1.0 Osteopenia: Between -1.0 and -2.5 Osteoporosis: Less than -2.5 without fractures Established osteoporosis: Less than -2.5 with fractures In general, you may wish to consider: Diagnosis Treatment Follow-up DEXA Normal BMD Prevention 2-3 years Osteopenia Prevention/Therapy 1-2 years Osteoporosis Therapy Yearly TECHNICAL DOCUMENTATION: JOB ID: [id number] [employer])- All Rights Reserved Reading location - IP/workstation name: [email or web address]
== END ==
LOC: WI 09:00
PROVIDERS: ATTEND Physician Assistant Medical
DX: M81.0 Age-related osteoporosis without current pathological fracture (principal)
CPT/HCPCS: 77080

== ENCOUNTER → 2020-03-02 | Outpatient (CLI) | payer MEDICAID ==
--- NOTE | 2020-03-02 16:57 | WOMENS IMAGING REPORT ---
EXAM DESCRIPTION: 3D SCREENING MAMMO LEFT IMAGES COMPLETED DATE/TIME: 03/02/2020 1:56 pm REASON FOR STUDY: Z12.31 SCREENING MAMMO Z12.31 ENCNTR SCREEN MAMMOGRAM FOR MALIGNANT NEOPLASM OF B RE COMPARISON: 2011 EXAM PARAMETERS: Standard craniocaudal and mediolateral oblique views of the breast recorded using d igital acquisition and breast tomosynthesis. Read with the assistance of CAD. .[facility] - [employer] Buyer Version 9.2 LIMITATIONS: None. FINDINGS: BREAST LATERALITY: left No suspicious masses, suspicious calcifications or architectural distortion. No areas of concern. IMPRESSION: NEGATIVE MAMMOGRAM. BIRADS 1. BREAST DENSITY: b. There are scattered areas of fibroglandular density. BIRAD: ASSESSMENT: 1 Negative RECOMMENDATION: RECOMMENDATION: ROUTINE SCREENING. Please continue left breast screening mammography in February 2021 COMMENT: The patient has been notified of the results by letter per [place] requirements. Additional no tification policies are in place for contacting patient with suspicious or incomplete findings. Quality ID #[id number]: The [employer] recommends an annual screening mammogram for women aged 40 years or over. This facility utilizes a reminder system to ensure that all patients receive reminder letters, and/or direct phone calls for appointments. This includes reminders for routine scr eening mammograms, diagnostic mammograms, or other Breast Imaging Interventions when appropriate. Th is patient will be placed in the appropriate reminder system. TECHNICAL DOCUMENTATION: FINDING NUMBER: (1) ASSESSMENT: (1) JOB ID: [id number] 2010 [employer]- All Rights Reserved Reading location - IP/workstation name: [email or web address]
== END ==
LOC: WI 13:00
PROVIDERS: ATTEND Internal Medicine
DX: Z12.31 Encounter for screening mammogram for malignant neoplasm of breast (principal)